=== PATIENT | male | born 1955 | race Caucasian/White ===

== ENCOUNTER → 2019-04-13 08:21 | Outpatient (CLI) | payer BC, SELFPAY ==
[2019-04-13 13:48] LABS: Hemoglobin A1C 5.7 % (0.0-7.0)
[2019-04-13 14:32] LABS: T4 (Thyroxine) 6.4 ug/dl (4.7-13.3); Thyroid Stimulating Hormone 3.29 uIU/ml (0.358-3.740)
[2019-04-14 06:23] LABS: Vitamin D 25 Hydroxy 4.2 ng/mL (30.0-100.0)
[2019-04-14 16:55] LABS: Folate 8.4 ng/mL (>3.0); Vitamin B12 381 pg/mL (232-1245)
[2019-04-17 14:25] LABS: Vitamin B1 107.3 nmol/L (66.5-200.0)
[2019-04-19 10:47] LABS: Vitamin B6 25.6 ug/L (5.3-46.7)
== END ==
PROVIDERS: PCP Family Medicine; Visit Provider Anesthesiology Pain Medicine
DX: G62.9 Polyneuropathy, unspecified (principal)
CPT/HCPCS: 36415; 82607; 82652; 82746; 83036; 84207; 84425; 84436; 84443

== ENCOUNTER 2023-05-01 15:14 | Emergency (ER) | payer MEDICARE, SELFPAY ==
[2023-05-01 15:20] VITALS: BP 171/99; PULSE 81; RESP 20; TEMP 37.2; O2SAT 98; BMI 19.6
--- NOTE | 2023-05-01 15:30 | EXP.UTC ---
Discharge Plan Disposition Patient Disposition: Home, Self-Care Condition: Good Prescriptions Prescriptions: New ondansetron 8 mg tablet,disintegrating 8 mg PO TID PRN (Reason: Nausea) Qty: 10 0RF Referrals Follow up/Referrals: Provider,Referral, MD [Primary Care Provider] - See instructions Activity Restrictions/Add. Instructions Additional Instructions/Restrictions: COVID19 test pending - results should be available tomorrow [place] foods, clear liquids today Clinical Impressions Clinical Impression: Vomiting Instructions Patient Instructions: DI for Vomiting -- Adult Discharge ED Provider: Zehra Flores [facility] General Stated complaint: vomiting, chills Time Seen by Provider: 05/01/23 15:35 History of Present Illness Provider Complaint: Patient has upset stomach, vomiting X 2 days. No fever but body aches and chills. Loose stools but hasn't been eating much. Denies ear pain or sore throat. Onset (ago): day(s) (2) Relieving factors: none Exacerbating factors: eating Associated symptoms: fever/chills, loss of appetite and nausea/vomiting Treatments prior to arrival: none Related Data Previous Rx's Medication Instructions Recorded ondansetron 8 mg disintegrating 8 mg PO TID PRN Nausea #10 tabs 05/01/23 tablet Allergies Allergy/AdvReac Type Severity Reaction Status Date / Time No Known Allergies Allergy Verified 05/01/23 15:32 [facility] Disclaimer: The information contained in this section may have been updated after the patient was seen, as this information can be updated by other users. Social History Smoking Status: Current every day smoker alcohol intake: never current occupational status: retired Travel in the last 8 weeks: None ROS Obtained: Yes All systems reviewed & no additional complaints except as documented Gastrointestinal Gastrointestingal: Reports nausea and vomiting Physical Exam General General appearance: alert and in no apparent distress Head Head exam: atraumatic, normocephalic and normal inspection Eye Eye exam: Present normal appearance, PERRL and EOMI ENT ENT exam: Present normal exam, normal oropharynx, mucous membranes moist, TM's normal bilaterally and normal external ear exam Neck Neck exam: Present normal inspection, full ROM and trachea midline; Absent meningismus or lymphadenopathy Chest Chest inspection: Present normal inspection and symmetric chest wall rise; Absent tenderness Respiratory Respiratory exam: Present normal lung sounds bilaterally; Absent respiratory distress Cardiovascular Cardiovascular exam: Present regular rate and normal rhythm; Absent JVD Abdominal Exam Abdominal exam: Present soft and hyperactive bowel sounds; Absent distention, tenderness or guarding Extremities Exam Extremities exam: Present normal inspection, full ROM and normal capillary refill; Absent calf tenderness Back Exam Back exam: Present normal inspection; Absent tenderness Neurological Exam Neurological exam: Present alert and oriented X3 Psychiatric Psychiatric exam: Present normal affect and normal mood Skin Skin exam: Present warm, dry, intact and normal color Lymphatic Lymphatic Findings: no adenopathy Medical Decision Making Steve Inquiry Pt receiving controlled substance: No
[2023-05-01 15:33] VITALS: BP 171/99; PULSE 81; RESP 20; TEMP 37.2; O2SAT 98
== END 2023-05-01 15:49 | disposition home or self-care (01) ==
PROVIDERS: Emergency Provider Physician Assistant
DX: R11.2 Nausea with vomiting, unspecified (principal); R68.83 Chills (without fever); F17.210 Nicotine dependence, cigarettes, uncomplicated
CPT/HCPCS: 87635; 99204; 99212; G0463

== ENCOUNTER 2024-06-08 09:53 | Emergency (ER) | payer MEDICARE, SELFPAY ==
[2024-06-08 09:55] VITALS: BP 162/86; PULSE 71; RESP 13; TEMP 36.9; O2SAT 96; BMI 28.8
[2024-06-08 10:01] VITALS: BP 162/86; PULSE 69; O2SAT 97
--- NOTE | 2024-06-08 10:05 | HMH.EDGENADL ---
Discharge Plan Disposition Patient Disposition: Home, Self-Care Condition: Good Prescriptions Prescriptions: No Action ondansetron 8 mg tablet,disintegrating 8 mg PO TID PRN (Reason: Nausea) Qty: 10 0RF Referrals Follow up/Referrals: Weston Wahl [Primary Care Provider] - See instructions Activity Restrictions/Add. Instructions Additional Instructions/Restrictions: As we discussed, I repaired the cut on your head with stitches that will absorb on their own. Please monitor for signs of infection, I recommend you apply Vaseline or antibiotic ointment to help expedite healing. Please return with any new or worsening symptoms. Clinical Impressions Clinical Impression: Laceration of scalp Instructions Patient Instructions: DI for Laceration Repair Print Language Print Language: Maltese Discharge ED Provider: Matt Britt General Adult HPI General Chief complaint: Wound/Laceration Stated complaint: AO-Laceration to forehead Time Seen by Provider: 06/08/24 10:04 History of Present Illness HPI narrative: The patient presents with a chief complaint of a head injury sustained after running into a door. He reports being in a hurry to go to the bathroom or kitchen when he collided with the door, resulting in a significant cut on his head. The patient denies losing consciousness during the incident and reports no pain in other areas. The patient has a history of neuropathy and experiences pain in the arch of his foot, particularly on the side affected by neuropathy. He attributes this to a history of working on concrete or steel surfaces. The patient also mentions that his foot pads and toes become swollen at times. Additionally, the patient is on blood thinners and is unsure about his tetanus vaccination status. He has not taken any medication for his current symptoms. The patient reports that he was tripping but moving forward when the incident occurred. He also mentions having had nerve tests done in the past, with a healthcare provider noting he only had one nerve left in his foot. The patient expresses concern about potential pain from sutures, referencing a previous experience. Please note that above description of symptoms, in this electronic medical record under categorization of recalled from ER triage doctor by RN are reflective of an initial nursing assessment, however, is not reflective of my full history and physical exam that was personally taken and clarified. Consequentially, this preceding description of symptoms, which may include the patient's categorized chief complaint in the EMR, do not reflect my personal clinical impression, and the ultimate description of history of present illness and patient stated complaints should be deferred to this section of the note. Unless stated otherwise or congruent with this section of the note, additional signs, symptoms, or incongruence should be interpreted as inaccurate with my clinical impression. Related Data Previous Rx's ?Medication ?Instructions ?Recorded ondansetron 8 mg disintegrating 8 mg PO TID PRN Nausea #10 tabs 05/01/23 tablet Allergies Allergy/AdvReac Type Severity Reaction Status Date / Time No Known Allergies Allergy Verified 05/01/23 15:32 [facility] Disclaimer: The information contained in this section may have been updated after the patient was seen, as this information can be updated by other users. Social History (Updated 05/01/23 @ 15:40 by COLTON Solomon) Smoking Status: Former smoker alcohol intake: never current occupational status: retired Travel in the last 8 weeks: None ROS Obtained: Yes other As per HPI Physical Exam General General appearance: alert and in no apparent distress Head Head exam: atraumatic and normocephalic Eye Eye exam: Present normal appearance Neck Neck exam: Present normal inspection Chest Chest inspection: Present normal inspection and symmetric chest wall rise Respiratory Respiratory exam: Present normal lung sounds bilaterally; Absent respiratory distress Cardiovascular Cardiovascular exam: Present regular rate and normal rhythm Abdominal Exam Abdominal exam: Present soft Neurological Exam Neurological exam: Present alert and oriented X3 Psychiatric Psychiatric exam: Present normal affect and normal mood Skin Skin exam: Present warm and dry Other Other exam information: Right-sided scalp laceration, approximately 4 cm, hemostatic, noncontaminated, no cervical spinal tenderness, no neurologic deficit appreciated. Left foot with no focal tenderness to palpation Medical Decision Making Medical Records Medical records reviewed: Yes I reviewed the patient's medical records. Screening: Per USPSTF and CDC recommendations, given the prevalence of disease in our region, it is our hospital?s policy to screen for HIV and viral Hepatitis for all patients aged 18 and over and those with ongoing risk factors. Steve Inquiry Pt receiving controlled substance: No Vital Signs: 06/08/24 09:55 06/08/24 10:01 06/08/24 10:30 Temperature 98.4 F Temperature Source Oral Pulse Rate 69 69 Pulse Rate [Left Radial] 71 Respiratory Rate 13 Blood Pressure 162/86 H 145/79 H Blood Pressure [Right Arm] 162/86 H Blood Pressure Mean [Right Arm] 111 02 Sat by Pulse Oximetry 96 97 99 Oxygen Delivery Method Room Air Room Air Room Air 06/08/24 11:30 06/08/24 12:12 Temperature 98.1 F Temperature Source Pulse Rate 64 66 Pulse Rate [Left Radial] Respiratory Rate 18 Blood Pressure 166/92 H 174/92 H Blood Pressure [Right Arm] Blood Pressure Mean [Right Arm] 02 Sat by Pulse Oximetry 98 Oxygen Delivery Method Room Air Room Air Orders (Tests/Meds): ED MEDICATIONS Discontinued Medications Generic Name Dose Route Start Last Admin Trade Name Freq PRN Reason Stop Dose Admin Tetanus/Reduced Diphtheria/Acell Pertussis 0.5 ml 06/08/24 10:21 06/08/24 10:44 Tet/Diphth/Pert-Adult 0.5ml Syringe IM 06/08/24 10:22 0.5 ml .ONCE ONE Administration ORDERS Category Date Time Status CT cervical spine wo con Stat Cat Scan 06/08/24 10:[address] head/brain wo con Stat Cat Scan 06/08/24 10:21 Completed XR foot LT min 3V Stat Exams 06/08/24 10:21 Completed Medical Decision Narrative: Patient with history and exam per above presenting for evaluation of scalp laceration Diagnoses considered include laceration, tetanus exposure, intracranial hemorrhage, cervical spinal injury, among others ED workup and treatment included: ED MEDICATIONS Discontinued Medications Generic Name Dose Route Start Last Admin Trade Name Freq PRN Reason Stop Dose Admin Tetanus/Reduced Diphtheria/Acell Pertussis 0.5 ml 06/08/24 10:21 06/08/24 10:44 Tet/Diphth/Pert-Adult 0.5ml Syringe IM 06/08/24 10:22 0.5 ml .ONCE ONE Administration ORDERS Category Date Time Status CT cervical spine wo con Stat Cat Scan 06/08/24 10:[address] head/brain wo con Stat Cat Scan 06/08/24 10:21 Completed XR foot LT min 3V Stat Exams 06/08/24 10:21 Completed Imaging was independently visualized and interpreted by me, significant for no acute findings Please refer to radiology report for full details. Laceration was repaired without complication I discussed my clinical impression with patient and answered all questions. At this time, the evidence for any other entities in the differential is insufficient to warrant any further testing or ED observation. This was explained to the patient. The patient was advised that persistent or worsening symptoms require further evaluation. Procedures Laceration Laceration 1: Site: scalp Side (If applicable): right Size (cm): 4 Description: linear Depth: simple, single layer Amount of anesthesia used (mL): 5 Pre-repair: wound explored and irrigated extensively Skin layer closed with: other (Gut) Size (cm): 4-0 Number of sutures: 4 Technique: simple, interrupted Critical Care Critical Care Time Critical Care Time: No
--- NOTE | 2024-06-08 10:16 | PC.NURSE ---
LAVELLE TREVINO at for pt juliannal
--- NOTE | 2024-06-08 10:21 | CT_ITS ---
PROCEDURE INFORMATION: Exam: CT Head Without Contrast Exam date and time: 06/08/2024 10:55 AM Age: 69 years old Clinical indication: Injury or trauma; Fall; Blunt trauma (contusions or hematomas); Additional info: Frontal scalp head injury, asa daily TECHNIQUE: Imaging protocol: Computed tomography of the head without contrast. Radiation optimization: All CT scans at this facility use at least one of these dose optimization techniques: automated exposure control; mA and/or kV adjustment per patient size (includes targeted exams where dose is matched to clinical indication); or iterative reconstruction. COMPARISON: No relevant prior studies available. FINDINGS: Brain: There is no mass effect, midline shift, acute hemorrhage or extra-axial fluid collection. There is age-indeterminate ischemia in the left occipital lobe. Fairly extensive hemispheric white matter hypodensity likely represents chronic microvascular ischemic change. Cerebral ventricles: No ventriculomegaly. Paranasal sinuses: Visualized sinuses are unremarkable. No fluid levels. Mastoid air cells: Visualized mastoid air cells are well aerated. Bones: Unremarkable. No acute fracture. Soft tissues: There is soft tissue laceration in the high right frontal region. IMPRESSION: No acute intracranial process.
--- NOTE | 2024-06-08 10:21 | XR_ITS ---
PROCEDURE INFORMATION: Exam: XR Left Foot Exam date and time: 06/08/2024 10:55 AM Age: 69 years old Clinical indication: Pain and injury or trauma; Fall; Blunt trauma; Foot; Left; Additional info: Neuropathy, blunt injury TECHNIQUE: Imaging protocol: Radiologic exam of the left foot. Views: 3 or more views. COMPARISON: No relevant prior studies available. FINDINGS: Bones/joints: There is no evidence for acute fracture or dislocation. Hammertoe deformities are noted. Overall bony mineralization is within normal limits. Soft tissues: Normal. IMPRESSION: No acute process in the left foot.
--- NOTE | 2024-06-08 10:22 | CT_ITS ---
PROCEDURE INFORMATION: Exam: CT Cervical Spine Without Contrast Exam date and time: 06/08/2024 10:57 AM Age: 69 years old Clinical indication: Injury or trauma; Fall; Blunt trauma; Additional info: Frontal scalp head injury, asa daily TECHNIQUE: Imaging protocol: Computed tomography of the cervical spine without contrast. Radiation optimization: All CT scans at this facility use at least one of these dose optimization techniques: automated exposure control; mA and/or kV adjustment per patient size (includes targeted exams where dose is matched to clinical indication); or iterative reconstruction. COMPARISON: CT HEAD/BRAIN WO CON 06/08/2024 10:55 AM FINDINGS: Bones: There is no evidence for acute cervical fracture or subluxation. Overall bony mineralization is within normal limits. Spondylosis is noted with disc ridging, uncovertebral spurring and facet arthropathy worst at C5-C6 and C6-C7. Lungs: Lung apices are normal. Soft tissues: Unremarkable. IMPRESSION: No acute cervical fracture.
[2024-06-08 10:30] VITALS: BP 145/79; PULSE 69; O2SAT 99
[2024-06-08] MEDS: TET/DIPHTH/PERT-ADULT 0.5ML SYRINGE 0.5 ML IM (10:44)
--- NOTE | 2024-06-08 10:51 | PC.NURSE ---
pt to radiology
[2024-06-08 11:30] VITALS: BP 166/92; PULSE 64; O2SAT 98
[2024-06-08 12:12] VITALS: BP 174/92; PULSE 66; RESP 18; TEMP 36.7; O2SAT 100
== END 2024-06-08 12:13 | disposition home or self-care (01) ==
PROVIDERS: Emergency Provider Emergency Medicine; PCP Family Medicine
DX: S01.01XA Laceration without foreign body of scalp, initial encounter (principal); R51.9 Headache, unspecified; Z23 Encounter for immunization; W01.198A Fall on same level from slipping, tripping and stumbling with subsequent striking against other object, initial encounter; Y93.89 Activity, other specified; Y92.000 Kitchen of unspecified non-institutional (private) residence as the place of occurrence of the external cause
CPT/HCPCS: 12002; 70450; 72125; 73630; 90471; 90715; 99283